=== PATIENT | female | born 1960 | race Caucasian/White ===

== ENCOUNTER → 2017-09-03 | Outpatient (CLI) | payer OTHER, SELFPAY | LOC: MAMMO 15:21 | PROVIDERS: Visit Provider Family Medicine | DX: Z12.31 Encounter for screening mammogram for malignant neoplasm of breast (principal); Z53.9 Procedure and treatment not carried out, unspecified reason ==

== ENCOUNTER → 2018-09-26 08:00 | Outpatient (CLI) | payer OTHER, SELFPAY ==
--- NOTE | 2018-09-26 | DI.MG.S_ITS ---
BILATERAL DIGITAL SCREENING MAMMOGRAM 3D/2D WITH CAD: 09/26/2018 CLINICAL: Routine screening. Comparison is made to exams dated: 08/25/2015 mammogram - [facility], 03/07/2011 mammogram, and 05/02/2007 mammogram - [facility]. The tissue of both breasts is heterogeneously dense. This may lower the sensitivity of mammography. Current study was also evaluated with a Computer Aided Detection (CAD) system. No significant masses, calcifications, or other findings are seen in either breast. There has been no significant interval change. IMPRESSION: NEGATIVE There is no mammographic evidence of malignancy. A 1 year screening mammogram is recommended. This exam was interpreted at Station ID: [id number]. NOTE: For mammograms, a report in lay terms will be sent to the patient. Approximately 15% of breast malignancies will not be visualized mammographically. In the management of a palpable breast mass, a negative mammogram must not discourage biopsy of a clinically suspicious lesion. Electronically Signed By: Fox Oro M.D. ecl/:09/26/2018 11:58:56 letter sent: Normal Exam ACR BI-RADS Category 1: Negative [id number]
== END ==
PROVIDERS: Visit Provider Family Medicine
DX: Z12.31 Encounter for screening mammogram for malignant neoplasm of breast (principal)
CPT/HCPCS: 77063; 77067

== ENCOUNTER → 2020-03-04 12:49 | Outpatient (CLI) | payer OTHER, SELFPAY ==
--- NOTE | 2020-03-04 | DI.US.S_ITS ---
PROCEDURE: US RENAL COMPLETE INDICATIONS: PAIN TECHNIQUE: Real-time scanning was performed of the kidneys and bladder, with image documentation. COMPARISON: None. FINDINGS: Kidneys: Kidneys are normal in size. Right kidney measures 10.3 cm long; left kidney measures 12.2 cm long. Right renal cortical thickness is 1.0 cm; left renal cortical thickness is 1.5 cm. Renal cortical echotexture is normal. No hydronephrosis or nephrolithiasis. No suspicious solid mass lesions. Bladder: Pre-void bladder volume is 495 mL. Post-void residual is 16 mL. Pre-void images demonstrate no intraluminal masses or stones. On pre-void images, bilateral ureteral jets are noted with color Doppler interrogation. (Of note, ureteral jets may not be detectable in up to 25% of cases due to insufficient differences in specific gravity between ureteral and bladder urine). Miscellaneous: No free pelvic fluid. IMPRESSION: Normal appearance of the kidneys. Dictated by: Karthik NORMAN Interpreted: Simona Harmon MD on 03/04/2020 at 13:55 Approved by: Simona Harmon M.D. on 03/04/2020 at 15:00
== END ==
PROVIDERS: Referring Provider Family Medicine; Visit Provider Family Medicine
DX: R10.2 Pelvic and perineal pain (principal)
CPT/HCPCS: 76770

== ENCOUNTER → 2020-03-23 11:02 | Outpatient (CLI) | payer OTHER, SELFPAY ==
--- NOTE | 2020-03-23 | DI.US.S_ITS ---
PROCEDURE: US PELVIC COMPLETE INDICATIONS: Pelvic and perineal pain Additional history: Midline pain for 3 months duration. TECHNIQUE: Real-time scanning was performed of the pelvic organs, with image documentation. Additional endovaginal scanning was necessary due to incomplete visualization of the adnexal and endometrial structures by transabdominal scanning. COMPARISON: [facility], , US RENAL COMPLETE, 03/04/2020, 13:00. FINDINGS: Transabdominal scanning: Trace right pelviectasis. No hydronephrosis on the left. Right kidney measures 10 cm. Left kidney measures 12.5 cm. No pathologic free abdominal or pelvic fluid. Endovaginal scanning: Uterus: Uterus is anteverted and normal in size at 4.8 x 3.8 x 2.7 cm. Heterogeneous echotexture. No uterine mass. The endometrium measures 4 mm in combined thickness. Ovaries: Not identified. Report of unilateral oophorectomy. Prominent left pelvic veins. IMPRESSION: 1. Ovaries are not seen. No free fluid. 2. Nonspecific prominent left pelvic veins. This could be seen in multiparous women. This could also be seen in pelvic congestion syndrome. 3. Heterogeneous appearance of the myometrium. No mass. 4. Endometrial thickness is within normal limits measuring 4 mm. 5. Trace right pelviectasis. Dictated by: Demetrius Silver M.D. on 03/23/2020 at 12:56 Approved by: Demetrius Silver M.D. on 03/23/2020 at 13:02
== END ==
PROVIDERS: PCP Family Medicine; Referring Provider Family Medicine; Visit Provider Family Medicine
DX: R10.2 Pelvic and perineal pain (principal)
CPT/HCPCS: 76830; 76856